=== PATIENT | male | born 1980 | race Caucasian/White ===

== ENCOUNTER 2018-04-22 17:37 | Emergency (ER) | payer OTHER ==
[2018-04-22 17:37] VITALS: BMI 21.3
[2018-04-22 18:04] VITALS: BP 115/74; PULSE 82; RESP 16; TEMP 98.4; O2SAT 100
[2018-04-22] MEDS ORDERED: Naproxen 550 mg Tab PO STA (18:35)
--- NOTE | 2018-04-22 19:45 | C.PDOC ---
History Of Present Illness 38 year old male presents to the emergency department status-post falling off of his bed three to four days ago with complaints of left rib pain and chest pain worsened with coughing and deep inspiration. Patient denies shortness of breath, head injury, headache, vomiting, hemoptysis, and back pain. Time Seen by Provider: 04/22/18 18:08 Chief Complaint (Nursing): Rib Injury History Per: Patient History/Exam Limitations: no limitations Onset/Duration Of Symptoms: Days (3-4) Current Symptoms Are (Timing): Worse Past Medical History Reviewed: Historical Data, Nursing Documentation, Vital Signs Vital Signs: Last Vital Signs Temp 98.4 F 04/22/18 18:02 Pulse 82 04/22/18 18:02 Resp 16 04/22/18 18:02 BP 115/74 04/22/18 18:02 Pulse Ox 100 04/22/18 21:22 - Medical History PMH: Diabetes Denies: HIV Surgical History: No Surg Hx - [facility] Procedures INFLUENZA VACCINATION (09/07/14) VACCINATION NEC (09/07/14) Family History: States: No Known Family Hx - Social History Hx Alcohol Use: Yes Hx Substance Use: Yes (Marijuana) - Immunization History Hx Tetanus Toxoid Vaccination: No Hx Influenza Vaccination: No Hx Pneumococcal Vaccination: No Review Of Systems Cardiovascular: Positive for: Chest Pain Respiratory: Negative for: Shortness of Breath, Hemoptysis Gastrointestinal: Negative for: Vomiting Musculoskeletal: Positive for: Other (left-sided rib pain) Neurological: Negative for: Headache Physical Exam - Physical Exam Appears: Non-toxic, No Acute Distress Skin: Warm, Dry Head: Atraumatic, Normacephalic Eye(s): bilateral: Normal Inspection Nose: Normal Neck: Normal, Supple Chest: Symmetrical, Tenderness (left, lateral rib tenderness) Cardiovascular: Rhythm Regular Respiratory: Normal Breath Sounds, No Rales, No Rhonchi, No Wheezing Gastrointestinal/Abdominal: Normal Exam, Soft, No Tenderness Neurological/Psych: Oriented x3, Normal Speech ED Course And Treatment O2 Sat by Pulse Oximetry: 100 (RA) Pulse Ox Interpretation: Normal - Other Rad XR Ribs and Chest X-Ray: Interpreted by Me, Viewed By Me Interpretation: Questionable fracture Progress Note: Plan: XR Ribs and Chest. Naproxen 550mg PO Medical Decision Making Medical Decision Making: xrays are negative for fx. Lungs are CTA and heart is RRR. Disposition - Disposition Referrals: [facility] [Outside] Disposition: HOME/ ROUTINE Disposition Time: 19:42 Condition: GOOD Additional Instructions: Follow up with the medical doctor within 1-2 days. Return if worsened. 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 - Scribe Statement The provider has reviewed the documentation as recorded by the Scribe (David Castro) All medical record entries made by the Scribe were at my direction and personally dictated by me. I have reviewed the chart and agree that the record accurately reflects my personal performance of the history, physical exam, medical decision making, and the department course for this patient. I have also personally directed, reviewed, and agree with the discharge instructions and disposition.
--- NOTE | 2018-04-23 13:45 | RAD ---
PROCEDURE: Radiographs of the Chest and Left Ribs. HISTORY: TRAUMA COMPARISON: None available. TECHNIQUE: Frontal radiograph of the chest and multiple oblique radiographs of the left ribs were obtained. FINDINGS: LEFT RIBS: No fracture or focal lesion visualized. LUNGS: Clear. PLEURA: No pneumothorax or pleural fluid. CARDIOVASCULAR: Normal sized heart. No pulmonary vascular congestion. OTHER FINDINGS: None. IMPRESSION: Unremarkable radiographs of the chest and left ribs. No left rib fracture.
== END 2018-04-22 19:49 | disposition home or self-care (01) ==
LOC: C.ER 17:37
DX: S20.212A Contusion of left front wall of thorax, initial encounter (principal); W06.XXXA Fall from bed, initial encounter; Y92.003 Bedroom of unspecified non-institutional (private) residence as the place of occurrence of the external cause

== ENCOUNTER 2018-05-15 11:31 | Emergency (ER) | payer OTHER ==
[2018-05-15 11:31] VITALS: BMI 21.3
[2018-05-15 11:41] VITALS: BP 113/74; PULSE 79; RESP 20; TEMP 98.9; O2SAT 98
[2018-05-15] MEDS ORDERED: Erythromycin 0.5% Ophth Oint 1 APPLIC/3.5 G OD STA (12:00)
[2018-05-15] MEDS ORDERED: Erythromycin 0.5% Ophth Oint 1 APPLIC/3.5 G ONE (12:05)
--- NOTE | 2018-05-15 12:11 | C.PDOC ---
History Of Present Illness 38 y/o male presents to the ER complaining of right eyelid swelling and itching which began yesterday. Patient states that he was treated for conjunctivitis 1 week ago with improvement. Denies having vision changes, foreign body sensation , and eye injuries. Time Seen by Provider: 05/15/18 11:47 Chief Complaint (Nursing): Eye Problem History Per: Patient History/Exam Limitations: no limitations Onset/Duration Of Symptoms: Days Current Symptoms Are (Timing): Still Present Severity: Moderate Past Medical History Reviewed: Historical Data, Nursing Documentation, Vital Signs Vital Signs: Last Vital Signs Temp 98.9 F 05/15/18 11:40 Pulse 79 05/15/18 11:40 Resp 20 05/15/18 11:40 BP 113/74 05/15/18 11:40 Pulse Ox 98 05/15/18 13:08 - Medical History PMH: Diabetes Denies: HIV Other Surgeries: Hx of surgeries - [facility] Procedures INFLUENZA VACCINATION (09/07/14) VACCINATION NEC (09/07/14) Family History: States: No Known Family Hx - Social History Hx Alcohol Use: Yes Hx Substance Use: Yes (Marijuana) - Immunization History Hx Tetanus Toxoid Vaccination: No Hx Influenza Vaccination: No Hx Pneumococcal Vaccination: No Review Of Systems Except As Marked, All Systems Reviewed And Found Negative. Constitutional: Negative for: Fever, Chills Eyes: Positive for: Other (right eyelid swelling and itching). Negative for: Vision Change Physical Exam - Physical Exam Appears: Non-toxic, No Acute Distress Skin: Normal Color, Warm, Dry Head: Atraumatic, Normacephalic Eye(s): bilateral: PERRL, EOMI, right: Other (upper eyelid inflammation, mild erythema, no mass, no discharge; no FB), left: Normal Inspection Nose: Normal Oral Mucosa: Moist Neck: Supple Chest: Symmetrical Cardiovascular: Rhythm Regular Respiratory: Normal Breath Sounds, No Rales, No Rhonchi, No Wheezing Neurological/Psych: Oriented x3, Normal Speech ED Course And Treatment O2 Sat by Pulse Oximetry: 98 (RA) Pulse Ox Interpretation: Normal Medical Decision Making Medical Decision Making: Plan: * Erythromycin OD Disposition Counseled Patient/Family Regarding: Diagnosis, Need For Followup - Disposition Referrals: Jimy Stewart [Staff Provider] - Disposition: HOME/ ROUTINE Disposition Time: 12:10 Condition: STABLE Additional Instructions: SEGUIMIENTO CON ESPECIALISTA EN OJOS Prescriptions: Erythromycin 0.5% [Ilytocin] 3.5 gm OP DAILY #1 tube Instructions: Blepharitis Forms: [employer] (Guatemalan) Print Language: PRYDEINIG - POA Present On Arrival: None - Clinical Impression Clinical Impression: Blepharitis - 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 - Scribe Statement The provider has reviewed the documentation as recorded by the Scribe Constance Somers Provider Attestation All medical record entries made by the Scribe were at my direction and personally dictated by me. I have reviewed the chart and agree that the record accurately reflects my personal performance of the history, physical exam, medical decision making, and the department course for this patient. I have also personally directed, reviewed, and agree with the discharge instructions and disposition.
== END 2018-05-15 12:16 | disposition home or self-care (01) ==
LOC: C.ER 11:31
DX: H01.003 Unspecified blepharitis right eye, unspecified eyelid (principal); E11.9 Type 2 diabetes mellitus without complications